=== PATIENT | female | born 1955 | race Caucasian/White ===

== ENCOUNTER 2020-04-08 07:42 | Day surgery (SDC) | payer MEDICARE, OTHER ==
[2020-04-08] MEDS ORDERED: Depo-Medrol 40 MG/ML IM ONE (07:43)
[2020-04-08] MEDS ORDERED: Xylocaine-Mpf 2% 5 Ml Vial IJ ONE (07:43)
[2020-04-08] MEDS ORDERED: Ketamine HCl 50 MG/ML ONE (09:56)
[2020-04-08] MEDS ORDERED: DIPRIVAN 200 MG/20 ML IV ONE (09:56)
[2020-04-08] MEDS ORDERED: Lactated Ringers 1,000 ML IV ONE (12:49)
--- NOTE | 2020-04-08 14:29 | XRAY ---
8 seconds fluoroscopy time in surgery for bilateral L4-S1 MBB.
--- NOTE | 2020-04-11 21:15 | XRAY ---
Indication: Bilateral L4-S1 MBB. Intraoperative fluoroscopy was provided for 8 seconds. A single posterior digital spot image submitted for interpretation demonstrates posterior spinal needle tips projected over the expected course of the left and right L4-S1 nerve roots. Correlate with intraoperative findings/report.
== END 2020-04-08 10:20 | disposition home or self-care (01) ==
LOC: SDC-PAIN 07:42
PROVIDERS: ATTEND Psychiatry & Neurology Pain Medicine
DX: M47.816 Spondylosis without myelopathy or radiculopathy, lumbar region (principal); E11.9 Type 2 diabetes mellitus without complications; I10 Essential (primary) hypertension; G47.30 Sleep apnea, unspecified; K44.9 Diaphragmatic hernia without obstruction or gangrene; L40.9 Psoriasis, unspecified; Z79.899 Other long term (current) drug therapy
CPT/HCPCS: 64493; 64494; 72020; 77002; 82962; J1030; J2704

== ENCOUNTER 2020-05-26 18:38 | Emergency (ER) | payer BC, MEDICARE ==
[2020-05-26] MEDS ORDERED: Adacel Vial IM ONE ×2 (19:07→19:35)
[2020-05-26] MEDS ORDERED: XYLOCAINE 1% HCL 20 ML MDV IJ ONE (19:07)
--- NOTE | 2020-05-26 19:15 | ERPHSYRPT ---
- History of Present Illness Time Seen by Provider: 05/26/20 19:00 Source: patient Exam Limitations: no limitations Patient Subjective Stated Complaint: Pt states "I was walking down the bleachers and I slipped and cut myself on metal." Triage Nursing Assessment: Pt presented alert and oriented X 3, skin pwd. Pt ambulates with a limp. Pt has laceration noted to right olivarez, bleeding controlled, approx 10 X 3 cm. no other injuries noted. Physician History: Patient is a 64-year-old female diabetic presents to our ED with complaints of laceration to her right olivarez. Patient was descending bleachers when her foot slipped causing laceration to her right anterior olivarez. Injury occurred just prior to arrival. Patient has a 10 x 3 cm laceration to the anteromedial aspect of her right olivarez. No other injuries reported. Tetanus is not up-to-date. No other injuries reported. No BHT or LOC. No neck pain. Cervical spine cleared clinically. Pain described as an ache that is well localized. No radiation. Pain worse with movement and palpation. Pain improved with rest. Patient voices no other complaints at this time. Method of Injury: fell Occurred: just prior to arrival Quality: constant Severity of Pain-Max: moderate Severity of Pain-Current: mild Lower Extremities Pain: leg: right Modifying Factors: Improves With: nothing Associated Symptoms: none Allergies/Adverse Reactions: Penicillins Allergy (Severe, Verified 05/26/20 19:04) swelling, hives Home Medications: Lancets 05/26/20 [History] Levothyroxine Sodium 100 Mcg [Synthroid 100 Mcg] 100 mcg PO DAILY 05/26/20 [History] Hx Tetanus, Diphtheria Vaccination/Date Given: No Hx Influenza Vaccination/Date Given: Yes Hx Pneumococcal Vaccination/Date Given: No Immunizations Up to Date: Yes Travel Risk - International Travel Have you traveled outside of the country in past 3 weeks: No - Coronavirus Screening Are you exhibiting any of the following symptoms?: No Close contact with a COVID-19 positive Pt in past 14-21 Days: No - Review of Systems Constitutional: No Symptoms, No Fever, No Chills Eyes: No Symptoms Ears, Nose, & Throat: No Symptoms Respiratory: No Symptoms, No Cough, No Dyspnea Cardiac: No Symptoms, No Chest Pain, No Edema, No Syncope Abdominal/Gastrointestinal: No Symptoms, No Abdominal Pain, No Nausea, No Vomiting, No Diarrhea Genitourinary Symptoms: No Symptoms, No Dysuria Musculoskeletal: No Symptoms, No Back Pain, No Neck Pain Skin: No Symptoms, No Rash Neurological: No Symptoms, No Dizziness, No Focal Weakness, No Sensory Changes Psychological: No Symptoms Endocrine: No Symptoms All Other Systems: Reviewed and Negative - Past Medical History Pertinent Past Medical History: Yes Cardiac History: Hypertension Respiratory History: No Pertinent History Endocrine Medical History: Diabetes Type II Musculoskeletal History: No Pertinent History GI Medical History: Hernia History: No Pertinent History Psycho-Social History: Depression Female Reproductive Disorders: Breast Cancer - Past Surgical History Past Surgical History: Yes Other Surgical History: breast cancer. right knee. bunion. hammer toe. hysterectomy. c section. tonsil and adnoids - Social History Smoking Status: Never smoker Exposure to second hand smoke: Yes Drug Use: none Patient Lives Alone: Yes - Female History Hx Now: No - Nursing Vital Signs Nursing Vital Signs: Initial Vital Signs Temperature 99.4 F 05/26/20 18:57 Pulse Rate 114 H 05/26/20 18:57 Respiratory Rate 22 05/26/20 18:57 Blood Pressure 161/74 05/26/20 18:57 O2 Sat by Pulse Oximetry 98 05/26/20 18:57 Pain Scale Pain Intensity 3 - Physical Exam General Appearance: alert Eyes, Ears, Nose, Throat Exam: moist mucous membranes Neck Exam: normal inspection, non-tender, supple Cardiovascular/Respiratory Exam: chest non-tender, normal breath sounds, regular rate/rhythm, no respiratory distress Gastrointestinal/Abdominal Exam: non-tender, guarding Back Exam: normal inspection, No vertebral tenderness Hips Exam: bilateral: non-tender, normal inspection, normal range of motion, no evidence of injury Legs Exam: right leg: pain, other (10 x 3 cm laceration to the anteromedial aspect of her right olivarez.), left leg: non-tender, normal inspection, normal range of motion, no evidence of injury Knees Exam: bilateral knee: non-tender, normal inspection, normal range of motion, no evidence of injury Ankle Exam: bilateral ankle: non-tender, normal inspection, normal range of motion, no evidence of injury Foot Exam: bilateral foot: non-tender, normal inspection, normal range of motion, no evidence of injury, other (Right lower extremity is neurovascular type distally. PT DP pulses palpable. Compartments are soft. Cap refill less than 2 seconds.) Neuro/Tendon Exam: normal sensation, normal motor functions Mental Status Exam: alert, oriented x 3, cooperative Skin Exam: normal color, warm, dry SpO2 Interpretation: normal SpO2: 98 O2 Delivery: Room Air Procedures - Laceration/Wound Repair Right Anterior Medial Other Wound Location: Right, lower leg Wound Length (cm): 10 Wound's Depth, Shape: superficial Wound Explored: clean Irrigated: Yes Hibiclens Prep: Yes Anesthesia: 1% Lidocaine Volume Anesthetic (ccs): 5 Wound Debrided: moderate Wound Repaired With: sutures Suture Size/Type: 4-0 Number of Sutures: 9 Layer Closure?: No Sterile Dressing Applied?: Yes Splint Applied?: No Sling Applied?: No - Course Nursing assessment & vital signs reviewed: Yes - Radiology Exams Lower Leg X-ray Interpretation: Interpreted by me (X-ray negative for fracture dislocation. Right total knee arthroplasty hardware intact.) Ordered Tests: Active Orders 24 hr Category Date Time Status LOWER LEG Stat Exams 05/26/20 19:08 Taken Medication Summary Discontinued Medications Generic Name Dose Route Start Last Admin Trade Name Freq PRN Reason Stop Dose Admin Clindamycin HCl 300 mg 05/26/20 20:46 05/26/20 20:50 Cleocin 150 Mg Capsule PO 05/26/20 20:47 300 mg STAT ONE Administration Clindamycin HCl Confirm 05/26/20 20:49 Cleocin 150 Mg Capsule Administered 05/26/20 20:50 Dose 300 mg .ROUTE .STK-MED ONE Diphtheria/Tetanus/Acell Pertussis 0.5 ml 05/26/20 19:07 05/26/20 19:40 Adacel Vial IM 05/26/20 19:08 0.5 ml .ONCE ONE Administration Diphtheria/Tetanus/Acell Pertussis Confirm 05/26/20 19:35 Adacel Vial Administered 05/26/20 19:36 Dose 0.5 ml IM .STK-MED ONE Lidocaine HCl 5 ml 05/26/20 19:07 05/26/20 19:39 Xylocaine 1% Hcl 20 Ml Mdv IJ 05/26/20 19:08 5 ml STAT ONE Administration Lidocaine HCl Confirm 05/26/20 19:35 Xylocaine 1% Hcl 20 Ml Mdv Administered 05/26/20 19:36 Dose 1 ml .ROUTE .STK-MED ONE - Progress Progress: improved Progress Note: Patient reassessed. Pain improved. Patient tolerated procedure well. Patient neurovascular intact distally post procedure. Patient received a dose of oral clindamycin in our ED. Patient is pen allergic. A prescription for clindamycin was forwarded to patient's pharmacy. Patient agrees to follow-up with primary care doctor within 48 hours for reevaluation. 05/26/20 21:10 Counseled pt/family regarding: diagnosis, need for follow-up, rad results - Departure Departure Disposition: Home Clinical Impression: Laceration Condition: Good Critical Care Time: No Referrals: MAULIK FAITH [PODIATRY STAFF] - Additional Instructions: Discharge/Care Plan AARON THOMAS was seen on 05/26/20 in the Emergency Room. The patient was counseled regarding Diagnosis,Lab results, Imaging studies, need for follow up and when to return to the Emergency Room. Prescriptions given: Discharge Note I have spoken with the patient and/or caregivers. I have explained the patient's condition, diagnosis and treatment plan based on the information available to me at this time. I have answered the patient's and/or caregiver's questions and addressed any concerns. The patient and/or caregivers have as good understanding of the patient's diagnosis, condition and treatment plan as can be expected at this point. The vital signs have been stable. The patient's condition is stable and appropriate for discharge from the emergency department. The patient will pursue further outpatient evaluation with the primary care physician or other designated or consulting physician as outlined in the discharge instructions. The patient and/or caregivers are agreeable to this plan of care and follow-up instructions have been explained in detail. The patient and/or caregivers have received these instruction. The patient/and or caregivers are aware that any significant change in condition or worsening of symptoms should prompt an immediate return to this or the closest emergency department or call 911. Prescriptions: Clindamycin HCl 150 mg [Cleocin 150 mg Capsule] 2 cap PO QID 7 Days #56 capsule
[2020-05-26] MEDS ORDERED: XYLOCAINE 1% HCL 20 ML MDV ONE (19:35)
[2020-05-26 20:20] VITALS: BP 133/64; PULSE 98; O2SAT 98
[2020-05-26] MEDS ORDERED: CLEOCIN 150 MG CAPSULE PO ONE (20:46)
[2020-05-26] MEDS ORDERED: CLEOCIN 150 MG CAPSULE ONE (20:49)
--- NOTE | 2020-05-27 08:43 | XRAY ---
Indication: Pain and laceration following fall. Comparison: None 2 view right lower leg demonstrates mild osteopenia, total knee arthroplasty with intact articulation/prosthesis, and a few anterior soft tissue calcified granulomas. No other bony, articular, or soft tissue abnormalities.
== END 2020-05-26 21:14 | disposition home or self-care (01) ==
LOC: ED 18:38
DX: S81.811A Laceration without foreign body, right lower leg, initial encounter (principal); W26.9XXA Contact with unspecified sharp object(s), initial encounter; Y93.9 Activity, unspecified
CPT/HCPCS: 12004; 73590; 90471; 90715; 96372; 99284; A9270-GY

== ENCOUNTER 2021-06-16 10:02 | Day surgery (SDC) | payer MEDICARE, BC ==
[2021-06-16] MEDS ORDERED: Marcaine Mpf 0.5% Vial 30 Ml IJ ONE (10:03)
[2021-06-16] MEDS ORDERED: DIPRIVAN 200 MG/20 ML IV ONE (11:24)
[2021-06-16] MEDS ORDERED: Lactated Ringers 1,000 ML IV ONE (13:48)
--- NOTE | 2021-06-16 17:00 | XRAY ---
11 seconds of fluoroscopy was used in surgery for a bilateral L4-S1 MBB.
--- NOTE | 2021-06-18 09:17 | XRAY ---
Indication: Bilateral L4-S1 MBB. Intraoperative fluoroscopy was provided for 11 seconds. A single digital spot image submitted for interpretation demonstrates posterior spinal needle tips projected over the expected course of the left and right L4-S1 nerve roots. Correlate with intraoperative findings/report.
== END 2021-06-16 11:52 | disposition home or self-care (01) ==
LOC: SDC-PAIN 10:02
PROVIDERS: ATTEND Psychiatry & Neurology Pain Medicine
DX: M47.816 Spondylosis without myelopathy or radiculopathy, lumbar region (principal); E11.9 Type 2 diabetes mellitus without complications; Z79.899 Other long term (current) drug therapy
CPT/HCPCS: 64493; 64494; 72020; 77002; 82947; J2704

== ENCOUNTER 2022-08-03 08:11 | Day surgery (SDC) | payer MEDICARE, BC ==
[2022-08-03] MEDS ORDERED: Marcaine Mpf 0.5% Vial 30 Ml IJ ONE (08:12)
[2022-08-03] MEDS ORDERED: Depo-Medrol 40 MG/ML IM ONE (08:12)
[2022-08-03] MEDS ORDERED: Lactated Ringers 1,000 ML IV ONE (10:19)
[2022-08-03] MEDS ORDERED: DIPRIVAN 200 MG/20 ML IV ONE (10:22)
--- NOTE | 2022-08-03 12:22 | XRAY ---
Indication: Bilateral L4-S1 MBB. Intraoperative fluoroscopy provided for 15 seconds. Single digital spot image submitted for interpretation demonstrates posterior needle tips projecting over the expected left and right L4-S1 nerve roots. Correlate with intraoperative findings/report.
--- NOTE | 2022-08-03 13:23 | XRAY ---
15 seconds of fluoroscopy was used in surgery for a bilateral L4-S1 MBB.
== END 2022-08-03 10:50 | disposition home or self-care (01) ==
LOC: SDC-PAIN 08:11
PROVIDERS: ATTEND Psychiatry & Neurology Pain Medicine
DX: M47.816 Spondylosis without myelopathy or radiculopathy, lumbar region (principal); E11.9 Type 2 diabetes mellitus without complications; Z79.899 Other long term (current) drug therapy
CPT/HCPCS: 64493; 64494; 72020; 77002; 82947; J1030; J2704

== ENCOUNTER 2022-08-31 10:15 | Day surgery (SDC) | payer MEDICARE, BC ==
[2022-08-31] MEDS ORDERED: Depo-Medrol 40 MG/ML IM ONE (10:16)
[2022-08-31] MEDS ORDERED: BUPIVACAINE 0.5% VIAL IJ ONE (10:16)
[2022-08-31] MEDS ORDERED: Xylocaine 1% Vial 30 ML PF IJ ONE (10:16)
[2022-08-31] MEDS ORDERED: DIPRIVAN 200 MG/20 ML IV ONE (11:41)
--- NOTE | 2022-08-31 12:31 | XRAY ---
Indication: Left L4-S1 RFA. Intraoperative fluoroscopy provided for 18 seconds. 2 digital spot images submitted for interpretation demonstrates posterior needle tips projecting over the left L4-S1 nerve roots. Correlate with intraoperative findings/report.
[2022-08-31] MEDS ORDERED: Lactated Ringers 1,000 ML IV ONE (13:34)
--- NOTE | 2022-08-31 13:35 | XRAY ---
18 seconds fluoroscopy time in surgery for left L4-S1 RFA.
== END 2022-08-31 12:07 | disposition home or self-care (01) ==
LOC: SDC-PAIN 10:15
PROVIDERS: ATTEND Psychiatry & Neurology Pain Medicine
DX: M47.817 Spondylosis without myelopathy or radiculopathy, lumbosacral region (principal); E11.9 Type 2 diabetes mellitus without complications; Z79.899 Other long term (current) drug therapy
CPT/HCPCS: 64635; 64636; 72100; 77002; 82947; J1030; J2001; J2704

== ENCOUNTER 2022-09-07 08:31 | Day surgery (SDC) | payer MEDICARE, BC ==
[2022-09-07] MEDS ORDERED: Xylocaine 1% Vial 30 ML PF IJ ONE (08:32)
[2022-09-07] MEDS ORDERED: BUPIVACAINE 0.5% VIAL IJ ONE (08:32)
[2022-09-07] MEDS ORDERED: D50W 50 ml Abboject IV ONE (08:32)
[2022-09-07] MEDS ORDERED: Depo-Medrol 40 MG/ML IM ONE (08:32)
[2022-09-07] MEDS ORDERED: Lactated Ringers 1,000 ML IV ONE (10:04)
[2022-09-07] MEDS ORDERED: DIPRIVAN 200 MG/20 ML IV ONE (10:20)
--- NOTE | 2022-09-07 12:32 | XRAY ---
24 seconds of fluoroscopy was used in surgery for a right L4-S1 RFA.
--- NOTE | 2022-09-08 08:37 | XRAY ---
Indication: Right L4-S1 RFA. Intraoperative fluoroscopy provided for 24 seconds. 4 digital spot images submitted for interpretation demonstrates posterior needle tips projecting over the expected right L4-S1 nerve roots. Correlate with intraoperative findings/report.
== END 2022-09-07 10:48 | disposition home or self-care (01) ==
LOC: SDC-PAIN 08:31
PROVIDERS: ATTEND Psychiatry & Neurology Pain Medicine
DX: M47.816 Spondylosis without myelopathy or radiculopathy, lumbar region (principal); E11.9 Type 2 diabetes mellitus without complications; Z79.899 Other long term (current) drug therapy
CPT/HCPCS: 64635; 64636; 72100; 77002; 82947; J1030; J2001; J2704

== ENCOUNTER 2023-06-07 07:58 | Day surgery (SDC) | payer MEDICARE, BC ==
[2023-06-07] MEDS ORDERED: BUPIVACAINE 0.5% VIAL IJ ONE (07:59)
[2023-06-07] MEDS ORDERED: Depo-Medrol 40 MG/ML IM ONE (07:59)
[2023-06-07] MEDS ORDERED: DIPRIVAN 200 MG/20 ML IV ONE (10:35)
--- NOTE | 2023-06-07 11:44 | XRAY ---
Indication: Bilateral SI joint injection. Intraoperative fluoroscopy provided for 16 seconds. 4 digital spot images submitted for interpretation demonstrates posterior needle tip projecting over the expected left and right SI joint. Correlate with intraoperative findings/report.
[2023-06-07] MEDS ORDERED: Lactated Ringers 1,000 ML IV ONE (13:08)
--- NOTE | 2023-06-07 13:30 | XRAY ---
16 seconds of fluoroscopy was used in surgery for a bilateral sacroiliac joint injection.
== END 2023-06-07 11:00 | disposition home or self-care (01) ==
LOC: SDC-PAIN 07:58
PROVIDERS: ATTEND Psychiatry & Neurology Pain Medicine
DX: M46.1 Sacroiliitis, not elsewhere classified (principal); E11.9 Type 2 diabetes mellitus without complications; Z79.899 Other long term (current) drug therapy
CPT/HCPCS: 01992; 27096; 72202; 77002; 82947; G0260; J1030; J2704

== ENCOUNTER 2024-05-08 06:53 | Day surgery (SDC) | payer MEDICARE, BC ==
[2024-05-08] MEDS ORDERED: DIPRIVAN 200 MG/20 ML IV ONE ×2 (08:46→08:54)
--- NOTE | 2024-05-08 10:12 | XRAY ---
Indication: Left L4-S1 RFA. Intraoperative fluoroscopy provided for 26 seconds. 3 digital spot image submitted for interpretation demonstrates posterior needle tips projecting over the expected left L4-S1 nerve roots. Correlate with intraoperative findings/report.
--- NOTE | 2024-05-08 11:41 | XRAY ---
26 seconds of fluoroscopy was used in surgery for a left L4-S1 RFA.
[2024-05-08] MEDS ORDERED: Lactated Ringers 1,000 ML IV ONE (12:06)
== END 2024-05-08 09:28 | disposition home or self-care (01) ==
LOC: SDC-PAIN 06:53
PROVIDERS: ATTEND Psychiatry & Neurology Pain Medicine
DX: M47.816 Spondylosis without myelopathy or radiculopathy, lumbar region (principal); E11.9 Type 2 diabetes mellitus without complications
CPT/HCPCS: 64635; 64636; 72100; 77002; 82947; J2704

== ENCOUNTER 2024-05-15 07:06 | Day surgery (SDC) | payer MEDICARE, BC ==
[2024-05-15] MEDS ORDERED: LIDOCAINE HCL 1% 50 MG/5 ML VL PF IJ ONE (07:07)
[2024-05-15] MEDS ORDERED: BUPIVACAINE 0.5% VIAL IJ ONE (07:07)
[2024-05-15] MEDS ORDERED: Depo-Medrol 40 MG/ML IM ONE (07:07)
[2024-05-15] MEDS ORDERED: Lactated Ringers 1,000 ML IV ONE (08:30)
[2024-05-15] MEDS ORDERED: DIPRIVAN 200 MG/20 ML IV ONE (08:57)
--- NOTE | 2024-05-15 10:22 | XRAY ---
Indication: Right L4-S1 RFA. Intraoperative fluoroscopy provided for 15 seconds. 3 digital spot images submitted for interpretation demonstrates posterior needle tips projecting over the expected right L4-S1 nerve roots. Correlate with intraoperative findings/report.
--- NOTE | 2024-05-15 10:35 | XRAY ---
15 seconds of fluoroscopy was used in surgery for a right L4-S1 RFA.
== END 2024-05-15 09:32 | disposition home or self-care (01) ==
LOC: SDC-PAIN 07:06
PROVIDERS: ATTEND Psychiatry & Neurology Pain Medicine
DX: M47.816 Spondylosis without myelopathy or radiculopathy, lumbar region (principal); E11.9 Type 2 diabetes mellitus without complications
CPT/HCPCS: 64635; 64636; 72100; 77002; 82947; J2001; J2704